=== PATIENT | female | born 1975 | race Caucasian/White ===

== ENCOUNTER 2017-10-14 09:37 | Outpatient (CLI) | payer OTHER | END 2017-10-14 15:00 | disposition home or self-care (01) | LOC: RAD 09:37 | DX: M54.12 Radiculopathy, cervical region (principal); M54.17 Radiculopathy, lumbosacral region ==

== ENCOUNTER 2020-07-04 08:20 | Outpatient (CLI) | payer OTHER | END 2020-07-04 18:00 | disposition home or self-care (01) | LOC: PPH VACUNA 08:20 | DX: Z23 Encounter for immunization (principal) ==